=== PATIENT | female | born 1990 | race Caucasian/White ===

== ENCOUNTER 2017-11-06 12:47 | Outpatient (CLI) | payer OTHER ==
[~2017-11-06 12:47] MED LIST: AMOX1TAB12 PO; INTESTINEX1 CA1 PO
== END 2017-11-06 15:43 | disposition home or self-care (01) ==
LOC: RAD 12:47
DX: M12.9 Arthropathy, unspecified (principal); M19.90 Unspecified osteoarthritis, unspecified site